=== PATIENT | female | born 1980 | race Caucasian/White ===

== ENCOUNTER → 2017-01-04 | Outpatient (CLI) | payer OTHER ==
--- NOTE | 2017-01-04 10:01 | RAD ---
EXAM: DIGITAL DIAGNOSTIC LT. HISTORY: Follow-up breast asymmetry and calcifications. COMPARISON: Diagnostic left mammogram and left breast ultrasound 06/22/2016. Bilateral mammogram 05/27/2016 and 05/07/2015.. FINDINGS: Digital mammography was performed. Computer-aided detection (CAD) was utilized. Routine CC and MLO views of the left breast were obtained. The breast parenchyma demonstrates heterogeneously dense parenchyma (tissue density C). A small cluster of microcalcifications in the left breast at 6:00 does not appear appreciably changed. The previously identified mammographic asymmetry in the medial left breast is less apparent on current examination. 2 biopsy markers are again seen. IMPRESSION: 1. No significant interval change in small cluster of microcalcifications and asymmetry. Recommend follow-up diagnostic mammogram in 6 months at which time right breast will be due for annual screening. BI-RADS CATEGORY: 2 BENIGN FINDING(S) RECOMMENDED FOLLOW-UP: 6M 6 MONTH FOLLOW-UP PQRS compliance statement: Patient information was entered into a reminder system with a target due date for the next mammogram. Mammography is a sensitive method for finding small breast cancers, but it does not detect them all and is not a substitute for careful clinical examination. A negative mammogram does not negate a clinically suspicious finding and should not result in delay in biopsying a clinically suspicious abnormality. "Our facility is accredited by the [employer] Mammography [employer]."
== END | disposition home or self-care (01) ==
LOC: MAMMO 09:27
PROVIDERS: ATTEND Obstetrics & Gynecology
DX: R92.8 Other abnormal and inconclusive findings on diagnostic imaging of breast (principal)
CPT/HCPCS: G0206; 77065